=== PATIENT | female | born 1995 | race Hispanic/Latino ===

== ENCOUNTER 2022-12-11 11:05 | Inpatient (IN) | payer OTHER ==
[~2022-12-11] VITALS: Ht 157.5 cm; Wt 73.2 kg
[2022-12-11 11:12] VITALS: O2SAT 100
[2022-12-11 11:51] LABS: HEMATOCRIT 40.3 % (36-48); MEAN CORPUSCULAR HEMOGLOBIN 28.2 pg (27.0-33.0); MEAN CORPUSCULAR VOLUME 82.9 fL (79-99); RED BLOOD CELL COUNT(AUTO) 4.86 MIL/uL (4.00-5.50)
[2022-12-11 12:00] LABS: AMPHET/METH SCREEN,URINE NEGATIVE (NEGATIVE); BARBITURATE SCREEN, URINE NEGATIVE (NEGATIVE); BENZODIAZEPINES SCREEN,URINE NEGATIVE (NEGATIVE); CANNABINOID SCREEN,URINE NEGATIVE (NEGATIVE); COCAINE SCREEN,URINE NEGATIVE (NEGATIVE); OPIATE SCREEN,URINE NEGATIVE (NEGATIVE); PHENCYCLIDINE SCREEN,URINE NEGATIVE (NEGATIVE)
[2022-12-11] MEDS ORDERED: MAGNESIUM SULFATE 40GM/1000ML 1,000 ML IV PRN (12:00)
[2022-12-11] MEDS ORDERED: MAGNESIUM 4GM PREMIX 100ML 100 ML IV SCH (12:00)
[2022-12-11] MEDS ORDERED: CELESTONE SOLUSPAN 6 MG/ML 5ML VIAL IM SCH (12:00)
[2022-12-11] MEDS ORDERED: CALCIUM GLUC 1GM/10ML VIAL IV PRN (12:00)
[2022-12-11] MEDS ORDERED: AMPICILLIN 2GM+NS 100ML 100 ML IV SCH (12:00)
[2022-12-11] MEDS ORDERED: OXYTOCIN-LR 30 UNITS/500ML 500 ML IV SCH (12:00)
[2022-12-11] MEDS ORDERED: LACTATED RINGERS 1000ML 1,000 ML IV PRN (12:00)
[2022-12-11 12:04] LABS: CREATININE 0.5 mg/dL (0.5-1.5); INR 0.93 (0.85-1.15); POTASSIUM 4.1 mmol/L (3.5-5.1); PROTHROMBIN TIME 9.8 SEC (9.6-11.6)
[2022-12-11 12:05] LABS: PARTIAL THROMBOPLASTIN TIME 25.9 SEC (26.3-35.5)
[2022-12-11 12:06] LABS: APPEARANCE,URINE CLEAR (CLEAR); BILIRUBIN,URINE NEGATIVE (NEGATIVE); COLOR,URINE COLORLESS (YELLOW); GLUCOSE, URINE (UA) 500 mg/dL (NEGATIVE); KETONES,URINE NEGATIVE (NEGATIVE); LEUKOCYTE ESTERASE ,URINE NEGATIVE Leu/uL (NEGATIVE); NITRATE,URINE NEGATIVE (NEGATIVE); PROTEIN,URINE NEGATIVE (NEGATIVE); UROBILINOGEN,URINE 0.2 mg/dL (0.2-1.0)
[2022-12-11 12:08] LABS: ADD UA MICROSCOPIC YES
[2022-12-11 12:09] LABS: ALBUMIN 2.7 g/dL (3.5-5.0); BILIRUBIN,TOTAL 0.3 mg/dL (0.2-1.0); TOTAL PROTEIN, SERUM 7.2 g/dL (6.0-8.3); URIC ACID 4.5 mg/dL (2.6-7.2)
[2022-12-11 12:36] LABS: BACTERIA,URINE RARE /HPF (None Seen); RBC,URINE 0-1 /HPF (0-1); SQUAMOUS EPITHELIAL CELL,UR RARE /HPF (0-2); WBC,URINE 0-1 /HPF (0-1)
[2022-12-11] MEDS: AMPICILLIN 1GM+NS 50ML 50 ML IV SCH ×2 (16:09→20:00)
[2022-12-11] MEDS ORDERED: PROMETHAZINE HCL 25 MG/ML 1ML AMPULE IM PRN (20:30)
[2022-12-11] MEDS ORDERED: MEPERIDINE-PF 25 MG/ML SYG IVP PRN (20:30)
[2022-12-11] MEDS ORDERED: INSULIN HUMULIN R 100 UNIT/ML 3ML SQ SCH (21:00)
[2022-12-11] MEDS: INSULIN HUMULIN R 100 UNIT/ML 3ML SQ SCH (21:23)
[2022-12-11] MEDS ORDERED: LIDOCAINE HCL 400MG/20ML VIAL ONE (22:32)
[2022-12-11] MEDS ORDERED: PORACTANT ALFA 120 MG/1.5 ML VIAL IH ONE (22:43)
[2022-12-11] MEDS ORDERED: PORACTANT ALFA 240 MG/3 ML VIAL IH ONE (22:44)
[2022-12-12] MEDS ORDERED: BENZOCAINE/LANOLIN/ALOE VERA 60 ML AEROSOL TP PRN
[2022-12-12] MEDS ORDERED: OXYTOCIN-LR 30 UNITS/500ML 500 ML IV SCH
[2022-12-12] MEDS ORDERED: LANOLIN 30GM OINTMENT TP PRN
[2022-12-12] MEDS ORDERED: ACETAMINOPHEN 325 MG TAB PO PRN
[2022-12-12] MEDS ORDERED: ACETAMINOPHEN WITH CODEINE 1 TAB TAB PO PRN
[2022-12-12] MEDS ORDERED: MEASLES/MUMPS/RUBELLA VACCINE, LIVE 0.5 ML/VIAL SQ PRN
[2022-12-12] MEDS ORDERED: WITCH HAZEL 1 PAD TP PRN
[2022-12-12] MEDS ORDERED: DIPH,PERTUSS(ACELL),TET VAC/PF 0.5 ML VIAL IM PRN
[2022-12-12] MEDS ORDERED: IBUPROFEN 600 MG TABLET PO PRN
[2022-12-12 02:00] VITALS: BP 145/94; PULSE 95; RESP 18
[2022-12-12] MEDS ORDERED: METF-445 PO (02:58)
[2022-12-12] MEDS ORDERED: METH250T3 PO (02:58)
[2022-12-12 03:16] VITALS: BP 133/82; PULSE 80; RESP 18
[2022-12-12] MEDS: INSULIN HUMULIN R 100 UNIT/ML 3ML SQ SCH (03:37)
[2022-12-12 06:37] LABS: HEMATOCRIT 39.3 % (36-48); MEAN CORPUSCULAR HEMOGLOBIN 28.2 pg (27.0-33.0); MEAN CORPUSCULAR HGB CONC 32.8 g/dL (32.0-36.0); MEAN CORPUSCULAR VOLUME 85.8 fL (79-99); RED BLOOD CELL COUNT(AUTO) 4.58 MIL/uL (4.00-5.50); RED CELL DISTRIBUTION WIDTH 13.2 % (11.0-15.5); WHITE BLOOD COUNT (AUTO) 12.5 K/uL (4.8-10.8)
[2022-12-12] MEDS ORDERED: METHYLDOPA 250 MG PO SCH (07:00)
[2022-12-12 07:19] VITALS: BP 138/94; PULSE 88; RESP 16
[2022-12-12] MEDS ORDERED: PHARMACY COMMUNICATION MISC SCH (08:00)
[2022-12-12] MEDS ORDERED: METFORMIN HCL 500 MG TABLET PO SCH (08:00)
[2022-12-12] MEDS ORDERED: DOCUSATE SODIUM 100 MG CAP PO SCH (09:00)
[2022-12-12 13:51] LABS: RAPID PLASMA REAGIN NONREACTIVE (NONREACTIVE)
== END 2022-12-12 13:30 | disposition home or self-care (01) | DRG 805 ==
LOC: EDH 11:05 → OBSVTOIN 11:30 → LDH 11:30 → WSH 12-12 01:45
PROVIDERS: ADMIT Obstetrics & Gynecology; ATTEND Obstetrics & Gynecology
PROC: 10E0XZZ Delivery of Products of Conception, External Approach (ICD-10-PCS; principal; 2022-12-11)
PROC: 0HQ9XZZ Repair Perineum Skin, External Approach (ICD-10-PCS; 2022-12-11)
PROC: 3E0R3BZ Introduction of Anesthetic Agent into Spinal Canal, Percutaneous Approach (ICD-10-PCS; 2022-12-11)
PROC: 00HU33Z Insertion of Infusion Device into Spinal Canal, Percutaneous Approach (ICD-10-PCS; 2022-12-11)
DX: O42.913 Preterm premature rupture of membranes, unspecified as to length of time between rupture and onset of labor, third trimester (principal); O24.12 Pre-existing type 2 diabetes mellitus, in childbirth; Z37.0 Single live birth; Z3A.32 32 weeks gestation of pregnancy; E11.69 Type 2 diabetes mellitus with other specified complication; O16.4 Unspecified maternal hypertension, complicating childbirth; O70.0 First degree perineal laceration during delivery
CPT/HCPCS: 36415; 76805; 80053; 80305; 81001; 82948; 84550; 85027; 85384; 85610; 85730; 86592; 86701; 86850; 86900; 86901; 87340; 87390; A4314; A4351; G0378; J0290; J0702; J1815; J2175; J2550; J3475; J3490; A4510; A4600